=== PATIENT | female | born 1975 | race Hispanic/Latino ===

== ENCOUNTER → 2018-10-21 | Outpatient (CLI) | payer OTHER | END | disposition home or self-care (01) | LOC: OIH 14:15 | PROVIDERS: ATTEND Internal Medicine | DX: I10 Essential (primary) hypertension (principal) | CPT/HCPCS: 71046 ==

== ENCOUNTER → 2019-03-17 | Outpatient (CLI) | payer OTHER | END | disposition home or self-care (01) | LOC: OIH 08:19 | PROVIDERS: ATTEND Internal Medicine | DX: M47.816 Spondylosis without myelopathy or radiculopathy, lumbar region (principal); M48.061 Spinal stenosis, lumbar region without neurogenic claudication | CPT/HCPCS: 72100 ==

== ENCOUNTER → 2019-12-12 | Outpatient (CLI) | payer OTHER, MEDICARE ==
--- NOTE | 2019-12-12 12:00 | NUR ---
Post-Bariatric Nutrition Counseling Visit 08/12 Time: 11:10 - 11:40 AM Pt is 1 year post Bariatric Sleeve. Patient experienced previous weight loss to 154 lbs but has gained 20+ Pounds over the course of the year. Pt is seeking direction to get back on track with lifestyle management and weight loss. RD reviewed typical bariatric nutrition protocol with Pt to review baseline. RD then conducted 24-hour diet recall and discussed recommended dietary modification. RD reviewed Healthy MyPlate, encouraged high fiber intake, and included healthy protein source recommendations review with Pt. RD also emphasized the importance of exercise for wt management and wt loss. RD also answered all of Pt questions regarding nutrition and lifestyle modification. Pt has set goals to work on to prepare for planned follow up in January. Goals include: 1) Increasing protein intake, 2) Increasing vegetable intake, 3) Increasing water intake, and 4) Working out on treadmill. RD to follow up with Pt. Contact information provided. Addendum: 12/12/19 at [address] RD Amended: Links added.
== END | disposition home or self-care (01) ==
LOC: DTH 10:27
PROVIDERS: ATTEND Surgery
DX: E66.01 Morbid (severe) obesity due to excess calories (principal); E78.5 Hyperlipidemia, unspecified; I12.9 Hypertensive chronic kidney disease with stage 1 through stage 4 chronic kidney disease, or unspecified chronic kidney disease
CPT/HCPCS: 97802

== ENCOUNTER → 2021-07-01 | Outpatient (CLI) | payer MEDICARE | END | disposition home or self-care (01) | LOC: OIH 10:34 | PROVIDERS: ATTEND Pain Medicine Interventional Pain Medicine | DX: M54.2 Cervicalgia (principal); M54.50 Low back pain, unspecified | CPT/HCPCS: 72040; 72100 ==

== ENCOUNTER → 2022-01-16 | Outpatient (CLI) | payer OTHER, MEDICARE | END | disposition home or self-care (01) | LOC: RAH 09:01 | PROVIDERS: ATTEND Pain Medicine Interventional Pain Medicine | DX: M25.551 Pain in right hip (principal); M25.552 Pain in left hip | CPT/HCPCS: 73522 ==

== ENCOUNTER → 2024-01-14 | Outpatient (CLI) | payer OTHER, MEDICARE | END | disposition home or self-care (01) | LOC: RAH 13:33 | PROVIDERS: ATTEND Physical Medicine & Rehabilitation | DX: M48.07 Spinal stenosis, lumbosacral region (principal); M47.26 Other spondylosis with radiculopathy, lumbar region; M25.551 Pain in right hip | CPT/HCPCS: 72148 ==